=== PATIENT | female | born 1980 | race Caucasian/White ===

== ENCOUNTER 2016-03-02 11:00 | Emergency (ER) | payer BC ==
[2016-03-02 11:39] LABS: COLOR YELLOW; LEUKOCYTE ESTERASE,URINE NEGATIVE (NEGATIVE); NITRITE,URINE NEGATIVE (NEGATIVE)
--- NOTE | 2016-03-02 11:58 | UCPHY ---
H & P Time Seen by Provider: 03/02/16 11:33 Patient Type: New HPI/ROS: 36-year-old female presents complaining of bilateral flank pain for the last few days worse during the middle when I had her in the morning and improves as the day goes by she has not been taking anything for this pain. She denies fevers or chills. She does state that approximately a week ago she believes she had a streptococcal infection, additionally her son was diagnosed with strep throat last week as well. She is concerned about having flank pain following this possible streptococcal infection because she has read about the potential for inflammation of your kidneys and glomerulonephritis. She states she actually feels well today, although she did notice this flank discomfort very early this morning and was unable to get comfortable. Review of systems General no fever no chills no weakness HEENT no eye pain no eye discharge. No eye redness, no sore throat Respiratory no cough, no shortness of breath Cardiac no chest pain, no peripheral edema GI no abdominal pain, no diarrhea, no constipation, no nausea, no vomiting positive flank pain, no hematuria, no dysuria Musculoskeletal positive myalgias, no joint pain Heme no easy bruising, no easy bleeding Endo no polyuria, no polydipsia Skin no rashes, no pruritus Neuro no syncope, no dizziness, no headaches Psych is no suicidal ideation, no homicidal ideation Past Medical/Surgical History: Noncontributory Social History: Denies alcohol or drug use Smoking Status: Never smoked Physical Exam: 36-year-old female alert and oriented in no acute distress nontoxic appearance afebrile HEENT atraumatic normocephalic, extraocular muscles intact, anicteric Oropharynx negative for erythema negative exudate, tolerating her own secretions Neck supple no meningismus Lungs clear to auscultation bilaterally Heart regular rate and rhythm without murmur rub or gallop Abdomen nondistended normoactive bowel sounds soft nontender Back no CVA tenderness, no step-offs, no spinal tenderness Extremities no cyanosis clubbing or edema Neuro alert and oriented, no focal deficits Constitutional: Initial Vital Signs Temperature (C) 36.7 C 03/02/16 11:20 Heart Rate 103 H 03/02/16 11:20 Respiratory Rate 18 03/02/16 11:20 Blood Pressure 116/77 03/02/16 11:20 O2 Sat (%) 98 03/02/16 11:20 O2 Delivery Mode Room Air Allergies/Adverse Reactions: No Known Allergies Allergy (Unverified 03/02/16 11:20) Home Medications: Medication Instructions Recorded Miscellaneous Medical Supply [NO 1 ea MISC AD 03/24/12 HOME MEDS] Medical Decision Making ED Course/Re-evaluation: Patient seen and evaluated for bilateral flank pain waxing and waning in nature over the last several days as well as possible strep infection approximately 1- 2 weeks ago. Urinalysis negative Strep negative CBC within normal limits Basic metabolic panel within normal limits Impression Bilateral musculoskeletal flank pain Plan Discharge Follow up with primary care physician Rest drink plenty of fluids ibuprofen or acetaminophen as needed for pain - Data Points Laboratory Results: Laboratory Results 03/02/16 12:30 03/02/16 12:30 03/02/16 03/02/16 03/02/16 Unknown 12:30 12:00 WBC 7.15 10^3/uL (3.80-9.50) RBC 5.06 10^6/uL (4.18-5.33) Hgb 15.1 g/dL (12.6-16.3) Hct 44.4 % (38.0-47.0) MCV 87.7 fL (81.5-99.8) MCH 29.8 pg (27.9-34.1) MCHC 34.0 g/dL (32.4-36.7) RDW 12.1 % (11.5-15.2) Plt Count 290 10^3/uL (150-400) MPV 10.1 fL (8.7-11.7) Neut % (Auto) 61.7 % (39.3-74.2) Lymph % (Auto) 29.9 % (15.0-45.0) Coleman % (Auto) 5.7 % (4.5-13.0) Eos % (Auto) 1.0 % (0.6-7.6) Baso % (Auto) 1.3 % (0.3-1.7) Nucleat RBC Rel Count 0.0 % (0.0-0.2) Absolute Neuts (auto) 4.41 10^3/uL (1.70-6.50) Absolute Lymphs (auto) 2.14 10^3/uL (1.00-3.00) Absolute Monos (auto) 0.41 10^3/uL (0.30-0.80) Absolute Eos (auto) 0.07 10^3/uL (0.03-0.40) Absolute Basos (auto) 0.09 10^3/uL (0.02-0.10) Absolute Nucleated RBC 0.00 10^3/uL (0-0.01) Immature Gran % 0.4 % (0.0-1.1) Immature Gran # 0.03 10^3/uL (0.00-0.10) Sodium 140 mEq/L (134-144) Potassium 4.3 mEq/L (3.5-5.2) Chloride 106 mEq/L (97-110) Carbon Dioxide 23 mEq/l (22-31) Anion Gap 11 mEq/L (8-16) BUN 10 mg/dL (7-23) Creatinine 0.8 mg/dL (0.6-1.0) Estimated GFR > 60 Glucose 85 mg/dL (70-100) Calcium 9.3 mg/dL (8.5-10.4) Urine Color Urine Appearance Urine pH Ur Specific [place] Urine Protein Urine Ketones Urine Blood Urine Nitrate Urine Bilirubin Urine Urobilinogen Ur Leukocyte Esterase Ur Culture Indicated? Urine Glucose Urine Test Group A Strep Screen NEGATIVE (NEGATIVE) Group A Strep DNA Pending 03/02/16 11:35 WBC RBC Hgb Hct MCV MCH MCHC RDW Plt Count MPV Neut % (Auto) Lymph % (Auto) Coleman % (Auto) Eos % (Auto) Baso % (Auto) Nucleat RBC Rel Count Absolute Neuts (auto) Absolute Lymphs (auto) Absolute Monos (auto) Absolute Eos (auto) Absolute Basos (auto) Absolute Nucleated RBC Immature Gran % Immature Gran # Sodium Potassium Chloride Carbon Dioxide Anion Gap BUN Creatinine Estimated GFR Glucose Calcium Urine Color YELLOW Urine Appearance CLEAR Urine pH 6.0 (5.0-7.5) Ur Specific [place] <= 1.005 (1.002-1.030) Urine Protein NEGATIVE (NEGATIVE) Urine Ketones NEGATIVE (NEGATIVE) Urine Blood NEGATIVE (NEGATIVE) Urine Nitrate NEGATIVE (NEGATIVE) Urine Bilirubin NEGATIVE (NEGATIVE) Urine Urobilinogen 0.2 EU (0.2-1.0) Ur Leukocyte Esterase NEGATIVE (NEGATIVE) Ur Culture Indicated? NOT INDICATED (NI) Urine Glucose NEGATIVE (NEGATIVE) Urine Test NEGATIVE Group A Strep Screen Group A Strep DNA Departure - Departure Disposition: Home, Routine, Self-Care Clinical Impression: Flank pain, Hx of streptococcal pharyngitis Condition: Good Instructions: Flank Pain (ED) Additional Instructions: Rest, drink plenty of fluids. Referrals: Lashanda Callejas MD [Primary Care Provider] - As per Instructions - PQRS PQRS Measurement: na
[2016-03-02 12:45] LABS: % IMMATURE GRANULYOCYTES 0.4 % (0.0-1.1); ABSOLUTE IMMATURE GRANULOCYTES 0.03 10^3/uL (0.00-0.10); ADD DIFF? NO; ADD MORPH? NO; ADD SCAN? NO; ATYPICAL LYMPHOCYTE FLAG 80 (0-99); FRAGMENT RBC FLAG 0 (0-99); HEMATOCRIT 44.4 % (38.0-47.0); HEMOGLOBIN 15.1 g/dL (12.6-16.3); LEFT SHIFT FLG 0 (0-99); LIPEMIA HEMOLYSIS FLAG 90 (0-99); MEAN CELL HEMOGLOBIN 29.8 pg (27.9-34.1); MEAN CELL VOLUME 87.7 fL (81.5-99.8); MEAN PLATELET VOLUME 10.1 fL (8.7-11.7); PLATELET CLUMPS FLAG 0 (0-99); PLATELET COUNT 290 10^3/uL (150-400); RED BLOOD CELL COUNT 5.06 10^6/uL (4.18-5.33); RED CELL DISTRIBUTION WIDTH 12.1 % (11.5-15.2)
[2016-03-02 12:52] LABS: ANION GAP 11 mEq/L (8-16); CALCIUM 9.3 mg/dL (8.5-10.4); CARBON DIOXIDE 23 mEq/l (22-31); CHLORIDE 106 mEq/L (97-110); CREATININE 0.8 mg/dL (0.6-1.0); GLOMERULAR FILTRATION RATE > 60; GLUCOSE 85 mg/dL (70-100); POTASSIUM 4.3 mEq/L (3.5-5.2); SODIUM 140 mEq/L (134-144)
[2016-03-02 13:02] VITALS: BP 108/73; PULSE 89; RESP 16; TEMP 98.8; O2SAT 97
== END 2016-03-02 13:02 | disposition home or self-care (01) ==
LOC: CED 11:00
DX: R10.9 Unspecified abdominal pain (principal)
CPT/HCPCS: 80048-PO; 81003-PO; 81025-PO; 85025-PO; 87880-PO; 99204-PO; G0463-PO

== ENCOUNTER 2016-03-05 20:53 | Emergency (ER) | payer BC ==
[2016-03-05 21:08] VITALS: BP 127/86; PULSE 91; RESP 18; TEMP 97.2; O2SAT 95
[2016-03-05] MEDS ORDERED: BICILLIN L-A 1200000 UNIT/2 ML SYRINGE IM ONE (21:45)
[2016-03-05] MEDS ORDERED: BICILLIN C-R 1200000 UNIT/2 ML SYRINGE IM ONE (22:12)
--- NOTE | 2016-03-05 22:34 | UCPHY ---
H & P Time Seen by Provider: 03/05/16 21:42 Patient Type: Established HPI/ROS: HPI Here for penicillin shot, history of positive strep culture. 36-year-old female by private vehicle. This patient has a history of a strep exposure from her child. She came to the emergency department and had a rapid strep as say done this was negative but her strep culture was positive. She discussed this with her doctor and decided to come to Urgent Care for a penicillin injection. She has had some vague muscle aches and joint aches. Mild sore throat but otherwise denies any other complaints. ROS: Constitutional: No fever, no chills. No weakness. Eyes: No discharge. No changes in vision. ENT: As above. No nasal congestion or rhinorrhea. Respiratory: No cough. No shortness of breath. Cardiac: No chest pain, no palpitations. Musculoskeletal: as above. Skin: No rashes. Neurological: No headache. No focal weakness or altered sensation. Past medical history: None. Social history: Here by herself. Physical Exam: General Appearance: Alert, no distress. This patient is responding to questions appropriately and in full sentences. This patient appears well- hydrated and well-nourished. Eyes: Pupils equal and round no pallor or injection. No lid edema, erythema or injection. ENT, Mouth: Mucous membranes are moist. The pharyngeal tissues are unremarkable. No edema or swelling. No asymmetry suggestive of abscess. No erythema or exudates. Neurological: Motor sensory function is grossly intact. Cranial nerves are normal. Gait is normal. Skin: Warm and dry, no rashes. Musculoskeletal: Neck is supple and nontender. No cervical lymphadenopathy. Extremities are symmetrical. All joints range without pain or impingement. Psychiatric: No agitation. No depression. Database: EKG: Imaging: Procedures: Emergency department course: After my evaluation, patient given 1.2 million units of IM pen G LA. She feels comfortable going home and I feel she is safe for discharge. Follow-up and return to Urgent Care precautions reviewed. All of her questions were answered. She was discharged in good condition. Differential Diagnosis: The differential diagnosis on this patient includes but is not limited to streptococcal pharyngitis, viral pharyngitis. This represents a partial list of diagnoses considered. These considerations are based on history, physical exam, and past history. Smoking Status: Never smoked Constitutional: Initial Vital Signs Temperature (C) 36.2 C 03/05/16 21:06 Heart Rate 91 03/05/16 21:06 Respiratory Rate 18 03/05/16 21:06 Blood Pressure 127/86 H 03/05/16 21:06 O2 Sat (%) 95 03/05/16 21:06 O2 Delivery Mode Room Air Allergies/Adverse Reactions: No Known Allergies Allergy (Unverified 03/02/16 11:20) Home Medications: Medication Instructions Recorded Miscellaneous Medical Supply [NO 1 ea MISC AD 03/24/12 HOME MEDS] MDM/Departure - Depart Disposition: Home, Routine, Self-Care Clinical Impression: Acute streptococcal pharyngitis Condition: Good Instructions: Strep Throat (ED) Additional Instructions: Read and follow provided instructions. Follow-up with your primary care physician in 1-2 days for re-evaluation as needed. Return to the emergency department for worsening symptoms or other serious concerns. Referrals: Lashanda Callejas MD [Primary Care Provider] - As per Instructions - PQRS PQRS Measurement: Not applicable.
== END 2016-03-05 22:39 | disposition home or self-care (01) ==
LOC: CED 20:53
DX: J02.0 Streptococcal pharyngitis (principal); Z23 Encounter for immunization
CPT/HCPCS: 96372-PO; 99214-PO; J0561

== ENCOUNTER → 2016-09-11 | Outpatient (CLI) | payer BC, OTHER | PROVIDERS: ATTEND Otolaryngology | DX: R13.10 Dysphagia, unspecified (principal) | CPT/HCPCS: 92611-GN ==

== ENCOUNTER → 2016-11-05 | Outpatient (CLI) | payer BC | LOC: FIMAGING 15:25 | PROVIDERS: ATTEND Psychiatry & Neurology Neurology | DX: R90.89 Other abnormal findings on diagnostic imaging of central nervous system (principal); M54.2 Cervicalgia ==